=== PATIENT | male | born 2000 | race Caucasian/White ===

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

== ENCOUNTER 2019-04-11 09:22 | Emergency (ER) | payer OTHER, BC ==
[~2019-04-11] VITALS: Ht 182.9 cm; Wt 63.5 kg
== END 2019-04-11 10:52 | disposition home or self-care (01) ==
LOC: ER 09:22
DX: S16.1XXA Strain of muscle, fascia and tendon at neck level, initial encounter (principal); V43.52XA Car driver injured in collision with other type car in traffic accident, initial encounter
CPT/HCPCS: 71046; 72040; 99284-25